=== PATIENT | male | born 1980 | race Caucasian/White ===

== ENCOUNTER 2020-12-20 16:33 | Emergency (ER) | payer SELFPAY ==
[~2020-12-20] VITALS: Ht 177.8 cm; Wt 97.0 kg
[2020-12-20] MEDS ORDERED: RIVAROXABAN 15 MG TABLET PO STA (17:32)
[2020-12-20 18:07] LABS: BASOPHILS % 0.6 % (0.0-2.0); EOSINOPHILS % 5.8 % (0.0-5.0); HEMATOCRIT. 42.5 % (42.0-52.0); HEMOGLOBIN. 14.6 g/dL (14.0-18.0); LYMPHOCYTES % 29.1 % (20.0-50.0); MEAN CORPUSCULAR HEMOGLOBIN 30.6 pg (28.0-32.0); MEAN CORPUSCULAR VOLUME 89.4 fL (80.0-94.0); MEAN PLATELET VOLUME 8.9 fl (7.4-10.4); MONOCYTES % 6.1 % (2.0-8.0); NEUTROPHILS % 58.4 % (40.0-76.0); PLATELET 253 x1000/uL (130-400); RED BLOOD CELL COUNT 4.76 mill/uL (4.7-6.1); RED CELL DISTRIBUTION WIDTH 12.2 % (11.6-14.6)
[2020-12-20 18:12] LABS: CHLORIDE 110 mEq/L (98-107)
[2020-12-20 21:30] VITALS: BP 127/86
[2020-12-20] MEDS ORDERED: XAR15 MT (21:38)
== END 2020-12-20 21:58 | disposition home or self-care (01) ==
LOC: ER 16:33
DX: I82.431 Acute embolism and thrombosis of right popliteal vein (principal); I49.9 Cardiac arrhythmia, unspecified
CPT/HCPCS: 36415; 80048; 85025; 93005; 99284; Z7610